=== PATIENT | male | born 1975 | race Caucasian/White ===

== ENCOUNTER 2017-07-12 04:54 | Emergency (ER) | payer SELFPAY ==
[2017-07-12] MEDS ORDERED: Lidocaine 1% Inj (20ml) ONE (05:25)
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
[2017-07-12] MEDS ORDERED: Tetanus/Diphtheria Toxoids 0.5 ml Syringe IM ONE ×2 (06:19→06:23)
[2017-07-12] MEDS ORDERED: Bacitracin 500 Units/gm Oint Foilpak UD ONE (06:23)
[2017-07-12 06:47] VITALS: BP 113/68; PULSE 87; RESP 20; TEMP 98.9; O2SAT 98
== END 2017-07-12 07:03 | disposition home or self-care (01) ==
LOC: C.ER 04:54
DX: S01.511A Laceration without foreign body of lip, initial encounter (principal); S00.83XA Contusion of other part of head, initial encounter; Y04.0XXA Assault by unarmed brawl or fight, initial encounter; Z23 Encounter for immunization